=== PATIENT | male | born 1945 | race Caucasian/White ===

== ENCOUNTER 2016-12-31 08:39 | Emergency (ER) | payer MEDICARE, BC ==
[2016-12-31 09:21] VITALS: BP 122/68
--- NOTE | 2016-12-31 09:49 | UC ---
Lower Extremity/Ankle HPI - HPI Summary HPI Summary: 71 yo male with left ankle pain and swelling x 5 days Has twisted ankle twice in those 5 days no hx prior ankle or foot injury - History of Current Complaint Chief Complaint: UCLowerExtremity Stated Complaint: LEFT ANKLE PAIN Time Seen by Provider: 12/31/16 09:34 Hx Obtained From: Patient Onset/Duration: Sudden Onset, Lasting Days Severity Initially: Mild Severity Currently: Moderate Pain Intensity: 4 Pain Scale Used: 0-10 Numeric Aggravating Factor(s): Standing, Ambulation Alleviating Factor(s): Rest, Elevation Able to Bear Weight: Yes - Allergies/Home Medications Allergies/Adverse Reactions: Allergies Allergy/AdvReac Type Severity Reaction Status Date / Time Penicillins Allergy Severe Hives Verified 12/31/16 09:07 Home Medications: Home Medications Aspirin Low Dose CHEW TAB* [Aspirin Low Dose TAB*] 81 mg PO DAILY 12/31/16 [ History Confirmed 12/31/16] Dabigatran CAP(NF) [Pradaxa CAP(NF)] 150 mg PO BID 12/31/16 [History Confirmed 12/31/16] Lisinopril/HCTZ 20/12.5(NF) [Zestoretic 20/12.5(NF)] 1 tab PO BID 12/31/16 [ History Confirmed 12/31/16] Omeprazole CAP* [Prilosec CAP* 20 MG] 20 mg PO DAILY 12/31/16 [History Confirmed 12/31/16] Simvastatin [Zocor 5 MG-] 20 mg PO DAILY 12/31/16 [History Confirmed 12/31/16] amLODIPine TAB* [Norvasc 5 mg TAB*] 5 mg PO DAILY 12/31/16 [History Confirmed ] PMH/Surg Hx/FS Hx/Imm Hx Previously Healthy: Yes Endocrine History: Dyslipidemia Cardiovascular History: Cardiac Disease, Hypertension, Atrial Fibrillation Neurological History: CVA - Surgical History Surgical History: Yes Surgery Procedure, Year, and Place: OPEN HEART. APPENCECTOMY. HERNIA REPAIR - Family History Known Family History: Positive: Hypertension, Diabetes - Social History Alcohol Use: Rare Substance Use Type: None Smoking Status (MU): Former Smoker When Did the Patient Quit Smoking/Using Tobacco: 1998 Review of Systems Constitutional: Fatigue Skin: Bruising Eyes: Negative ENT: Negative Respiratory: Negative Cardiovascular: Negative Gastrointestinal: Negative Genitourinary: Negative Motor: Negative Neurovascular: Negative Musculoskeletal: Arthralgia Neurological: Negative Psychological: Negative All Other Systems Reviewed And Are Negative: Yes Physical Exam Triage Information Reviewed: Yes Appearance: Well-Appearing, No Pain Distress, Well-Nourished Vital Signs: Initial Vital Signs Temp 98.5 F 12/31/16 09:13 Pulse 68 12/31/16 09:13 Resp 18 12/31/16 09:13 BP 122/68 12/31/16 09:13 Pulse Ox 98 12/31/16 09:13 Vital Signs Reviewed: Yes Eyes: Positive: Conjunctiva Clear ENT: Negative: Hearing grossly normal, Nasal congestion, Nasal drainage, Trismus , Muffled/hoarse voice Neck: Positive: Supple, Nontender Respiratory: Positive: Lungs clear, Normal breath sounds, No respiratory distress Cardiovascular: Negative: RRR Musculoskeletal: Positive: Edema @ - left MM and LN Neurological: Positive: Alert Psychological Exam: Normal Skin Exam: Normal Diagnostics - Radiology No standard instances Xray Interpretation: Positive (See Comments) Radiology Interpretation Completed By: ED Physician - offical report pending at time of d/c, DJD and STS, no fx noted Lower Extremity Course/Dx - Differential Dx/Diagnosis Provider Diagnoses: left ankle sprain Discharge - Discharge Plan Condition: Stable Disposition: HOME Patient Education Materials: Ankle Sprain (ED) Referrals: Jesusita Quintero MD [Primary Care Provider] - 1 Week (if not better) Additional Instructions: rest elevate ice CAM boot when wt bearing tylenol if needed for pain I SUSPECT YOUR SWELLING AND BRUISING WILL WORSEN OVER THE NEXT FEW DAYS See your MD in about a week if unable to bear wt pain free Images Feet (Multiple View): 1 - tender/swollen/sl ecchymosis 2 - tender/swollen
--- NOTE | 2016-12-31 10:03 | RAD ---
INDICATION: Ankle injury COMPARISON: None TECHNIQUE: AP, lateral, and oblique views were obtained. FINDINGS: There is osteopenia. There is mild ossific change about the tibiotalar joint. There are heel spurs. There is diffuse soft tissue swelling both medial and laterally. There is also degenerative change of the midfoot with hypertrophic change with spurring. IMPRESSION: DEGENERATIVE CHANGES. NO ACUTE BONY CHANGE. DIFFUSE SOFT TISSUE SWELLING.
== END 2016-12-31 10:10 | disposition home or self-care (01) ==
LOC: UCCORT 08:39
DX: S93.402A Sprain of unspecified ligament of left ankle, initial encounter (principal); X50.1XXA Overexertion from prolonged static or awkward postures, initial encounter; Y93.9 Activity, unspecified; Y92.9 Unspecified place or not applicable; I48.91 Unspecified atrial fibrillation; Y99.9 Unspecified external cause status; M85.872 Other specified disorders of bone density and structure, left ankle and foot; R22.9 Localized swelling, mass and lump, unspecified; M19.072 Primary osteoarthritis, left ankle and foot; Z86.73 Personal history of transient ischemic attack (TIA), and cerebral infarction without residual deficits; E78.5 Hyperlipidemia, unspecified; I51.9 Heart disease, unspecified; Z72.0 Tobacco use
CPT/HCPCS: 99202; G0463

== ENCOUNTER 2017-04-09 08:53 | Emergency (ER) | payer MEDICARE, BC ==
[2017-04-09 09:13] VITALS: BP 145/67
--- OUTSIDE RECORDS SUMMARY | 2017-04-09 09:32 | XMS REPORT | Clinical Summary ---
:1945 Author Organization [facility] Address [address] [place] [address] Phone Allergies, Adverse Reactions, Alerts Allergy Name Reaction Description Start Date Severity Status Provider PENICILLIN Critical Active Milagros Winchester RN Conditions or Problems Problem Name Problem Onset Status Entry Provider Comment Standard Annotate Code Date Date Description Hypertension, 401.9 Active SHANTHI Unspecified essential, 06/29 07/28 DANIS essential controlled SONYA SANCHES hypertension NASAL POLYP 471.0 Active Milagros Polyp of nasal 06/29 06/29 Annabella RN cavity FATIGUE 780.79 Active Leti Other malaise 06/12 06/12 NauseefLPN and fatigue Hyperlipidemia 272.2 Active SHANTHI Mixed mixed 09/24 07/28 DANIS hyperlipidemia SONYA SANCHES ATRIAL 427.31 Active CLAYTON F Atrial FIBRILLATION 12/18 12/18 SALVATORE SANCHES fibrillation CEREBROVASCULA 434.91 Active CLAYTON Alfaro 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, unspecified, with cerebral infarction OBESITY 278.00 Active CLAYTON F Obesity, 01/23 01/23 SALVATORE SANCHES unspecified VENTRICULAR 745.4 Active CLAYTON F Ventricular SEPTAL DEFECT 0 SALVATORE SANCHES septal defect Home oxygen V46.2 Active SHANTHI Other nocturnal therapy 01/18 01/18 DANIS dependence on sat--88, 2 SONYA SANCHES machines, LPM supplemental nightime oxygen use only Carbuncle of 680.6 Active SHANTHI Carbuncle and leg, left 06/06 06/06 DANIS furuncle of SONYA SANCHES leg, except foot Medication List Medication Instructions Start Stop Generic Name NDC Status Provider Patient Date Date Instruction ASPIRIN 81 1 by mouth ASPIRIN 160026254 Active Kristine MG ORAL every day 12/31 05 [place] TABLET BOBBIN SORTER CENTRUM 1 tab qd MULTIPLE 973017712 Active CLAYTON Alfaro SILVER ULTRA 06/13 VITAMINS-MIN 50 KARN PA MENS ORAL ERALS TABLET OMEPRAZOLE take 1 OMEPRAZOLE 679966902 Active SHANTHI 20 MG ORAL capsule by 05/11 01 DANIS CAPSULE mouth daily HASSAN DELAYED PA RELEASE PRADAXA 150 take DABIGATRAN 304972165 Active SHANTHI MG ORAL capsule by 06/07 ETEXILATE 54 DANIS CAPSULE mouth twice a MESYLATE HASSAN day PA AMLODIPINE one by mouth AMLODIPINE 430731011 Active SHANTHI BESYLATE 5 Every Day for 09/17 BESYLATE 22 DANIS MG ORAL BP HASSAN TABLET PA HOME OXYGEN HOME OXYGEN Active SHANTHI 2 LPM 01/18 2 LPM DANIS HASSAN PA LISINOPRIL-H take 2 LISINOPRIL-H 602348222 Active SHANTHI CTZ 20-12.5 tablets by 01/04 YDROCHLOROTH 01 DANIS MG TAB mouth once IAZIDE HASSAN daily PA SIMVASTATIN 1 By Mouth SIMVASTATIN 083311282 Active SHANTHI 20 MG TABLET take at 01/05 10 DANIS bedtime HASSAN PA DOXYCYCLINE 1 by mouth DOXYCYCLINE 627979378 Active SHANTHI HYCLATE 100 twice a day 06/06 04/16 HYCLATE 05 DANIS MG ORAL HASSAN CAPSULE PA Immunizations Vaccine Administration Date Value Standard Description influenza immunization given elsewhere influenza virus vaccine, (Flu Vax) has been unspecified formulation administered influenza immunization given influenza virus vaccine, (Flu Vax) has been unspecified formulation administered influenza immunization given influenza virus vaccine, (Flu Vax) has been unspecified formulation administered PEDIATRIC PNEUMOCOCCAL given elsewhere pneumococcal conjugate VACCINE ([id number]) #1 vaccine, 13 valent influenza immunization given influenza virus vaccine, (Flu Vax) has been unspecified formulation administered influenza immunization given influenza virus vaccine, (Flu Vax) has been unspecified formulation administered varicella shingles given elsewhere varicella virus vaccine vaccine dT (Diphtheria and given Td(adult) unspecified Tetanus) immunization for formulation children, #1 Vital Signs Date Name Value Unit Range Description blood pressure, diastolic 75 mm[Hg] BP kennedy blood pressure, systolic 138 mm[Hg] BP sys height E&M 69 [in_us] Bdy height pulse rate E&M 49 /min Heart rate respiratory rate E&M 16 /min Resp rate temperature E&M 97.6 [degF] Body temperature weight E&M 216 [lb_av] Weight Measured blood pressure, diastolic 64 mm[Hg] BP kennedy blood pressure, systolic 127 mm[Hg] BP sys height E&M 69 [in_us] Bdy height pulse rate E&M 55 /min Heart rate respiratory rate E&M 18 /min Resp rate temperature E&M 97.7 [degF] Body temperature weight E&M 212 [lb_av] Weight Measured blood pressure, diastolic 73 mm[Hg] BP kennedy blood pressure, systolic 136 mm[Hg] BP sys height E&M 69 [in_us] Bdy height pulse rate E&M 56 /min Heart rate respiratory rate E&M 18 /min Resp rate temperature E&M 98 [degF] Body temperature weight E&M 217 [lb_av] Weight Measured blood pressure, diastolic, second 71 mm[Hg] BP kennedy observation blood pressure, diastolic 71 mm[Hg] BP kennedy blood pressure, systolic, second 146 mm[Hg] BP sys observation blood pressure, systolic 146 mm[Hg] BP sys height E&M 69 [in_us] Bdy height pulse rate E&M 73 /min Heart rate respiratory rate E&M 12 /min Resp rate temperature E&M 97.3 [degF] Body temperature weight E&M 228 [lb_av] Weight Measured Diagnostic Results Date Name Value Unit Range Description Lab Report: BASIC METABOLIC PANEL - Chemistry blood glucose, random 93 mg/dL 74-106 urea nitrogen/creatinine ratio, 17.8 ratio serum sodium, serum 145 mmol/L 594-623 3527/03/17 potassium, serum 3.9 mmol/L 3.5-5.1 chloride, serum 109 mmol/L 98-107 carbon dioxide, venous blood 28 mmol/L 21-32 anion gap, serum 8 mEq/L 8-16 calcium, serum 8.5 mg/dL 8.5-10.1 blood glucose, random 92 mg/dL 74-106 urea nitrogen, blood 27 mg/dL 7-18 creatinine, serum 1.1 mg/dL 0.6-1.3 Estimated Glomerular Filtration >60 mL/min mL/min/1.73m2 > 60 Rate (calc) Glomerular Filtration rate >60 mL/min >60 Vincentian urea nitrogen/creatinine ratio, 24.5 ratio serum sodium, serum 144 mmol/L 544-593 6646/08/30 potassium, serum 4.2 mmol/L 3.5-5.1 chloride, serum 109 mmol/L 98-107 carbon dioxide, venous blood 31 mmol/L 21-32 anion gap, serum 4 mEq/L 8-16 calcium, serum 9.0 mg/dL 8.5-10.1 cholesterol, serum 110 mg/dL <200 triglyceride, serum, fasting 95 mg/dL <150 HDL cholesterol, serum 34 mg/dL >40 LDL cholesterol, serum 57 mg/dL < 100 alanine aminotransferase (SGPT), 23 U/L 12-78 serum urea nitrogen, blood 25 mg/dL 7-18 creatinine, serum 1.4 mg/dL 0.6-1.3 Estimated Glomerular Filtration 53 mL/min/1.73m2 >60 Rate (calc) Glomerular Filtration rate >60 mL/min >60 [facility] Office Visit: OV:Head injury f/u - Chemistry occult blood, stool (E&M) guaiac negative Office Visit: OV:Head injury f/u - Urinalysis nitrite, urine, semiquantitative negative urobilinogen, urine, semiquantitative (dipstick) negative blood in urine (hemoglobin) by dipstick negative ketones, urine, by test strip negative bilirubin, urine negative glucose, urine, semiquantitative negative leukocyte esterase, urine, by dipstick negative appearance, urine clear urine color yellow specific gravity, urine 1.010 pH, urine, semiquantitative 6.0 Encounters Code Encounter Date Provider Facility CPT-64751 Ofc Vst, Est Level III SHANTHI [facility] 11:39:27 EST PA CPT-19780 Ofc Vst, Est Level IV SHANTHI HASSAN [facility] 08:56:55 EDT PA CPT-81985 Ofc Vst, Est Level II SHANTHI [facility] 21:24:52 EDT PA CPT-22775 Ofc Vst, Est Level II SHANTHI [facility] 15:06:08 EDT PA CPT-58573 Ofc Vst, Est Level III SHANTHI [facility] 09:37:55 EDT PA CPT-46116 Ofc Vst, Est Level IV SHANTHI HASSAN [facility] 09:58:41 EDT PA CPT-39467 Ofc Vst, Est Level III SHANTHI HANSENLEY SONYA [facility] 12:15:58 EDT PA CPT-86537 Ofc Vst, Est Level III SHANTHI HASSAN [facility] 12:26:01 EDT PA CPT-48082 Ofc Vst, Est Level III SHANTHI HASSAN [facility] 09:08:35 EDT PA CPT-36081 Ofc Vst, Est Level III SHANTHI HASSAN [facility] 09:14:04 EDT PA CPT-36155 Ofc Vst, Est Level III SHANTHI HASSAN [facility] 08:42:26 EDT PA CPT-98808 Ofc Vst, Est Level III SHANTHI HASASN [facility] 09:44:50 EDT PA CPT-34993 Ofc Vst, Est Level III SHANTHI DANIS HASSAN [facility] 09:20:38 EDT PA CPT-25175 Ofc Vst, Est Level IV CLAYTON SANCHES [facility] 08:23:46 EDT CPT-45182 Ofc Vst, Est Level III CLAYTON SANCHES [facility] 23:19:34 EDT CPT-12073 Ofc Vst, Est Level IV CLAYTON SANCHES [facility] 10:37:11 EDT CPT-23181 Ofc Vst, Est Level IV CLAYTON SANCHES [facility] 21:52:49 EDT CPT-78937 Ofc Vst, Est Level III CLAYTON SANCHES [facility] 21:20:05 EDT CPT-26829 Ofc Vst, Est Level III CLAYTON SANCHES [facility] 20:53:48 EDT CPT-05362 Ofc Vst, Est Level III SHANTHI HASSAN [facility] 08:28:26 EDT PA CPT-47124 Ofc Vst, Est Level IV CLAYTON SANCHES [facility] 10:16:46 EDT CPT-12603 Ofc Vst, Est Level IV CLAYTON CHASE [facility] 11:14:31 EST Procedures Code Procedure Name Date Entry Date Standard Description CPT-54610 Urine Dip - In House 09:35:57 EDT CPT-74780 Influenza 3 yrs. & up 12:14:56 EDT CPT-96826 Admin one Imm 12:14:53 EDT CPT-74376 Admin one Imm 13:34:00 EDT CPT-32256 Influenza 3 yrs. & up 09:01:05 EDT CPT-44851 Influenza 3 yrs. & up 08:44:26 EDT CPT-49501 Admin one Imm 08:44:26 EDT CPT-14224 Urine Dip - In House 22:29:09 EST CPT-61899 Venipuncture 10:50:06 EST CPT-46708 Venipuncture 09:30:48 EST CPT-34169 Venipuncture 08:44:05 EDT CPT-46974 Venipuncture 20:53:48 EDT CPT-56272 Venipuncture 09:39:08 EDT
--- OUTSIDE RECORDS SUMMARY | 2017-04-09 09:32 | XMS REPORT | Clinical Summary ---
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, unspecified, with cerebral infarction OBESITY 278.00 Active CLAYTON F Obesity, 01/23 01/23 SALVATORE SANCHES unspecified VENTRICULAR 745.4 Active CLAYTON F Ventricular SEPTAL DEFECT 0 0 SALVATORE SANCHES septal defect Home oxygen V46.2 Active SHANTHI Other nocturnal therapy 01/18 01/18 DANIS dependence on sat--88, 2 SONYA SANCHES machines, LPM supplemental nightime oxygen use only Carbuncle of 680.6 Active SHANTHI Carbuncle and leg, left 06/06 06/06 DANIS furuncle of SONYA SANCHES leg, except foot Subcutaneous 782.2 Active SHANTHI Localized chronic mass of 06/06 06/06 DANIS superficial forearm, right HASSAN PA swelling, mass, or lump Medication List Medication Instructions Start Stop Generic Name NDC Status Provider Patient Date Date Instruction ASPIRIN 81 1 by mouth ASPIRIN 386041288 Active Kristine MG ORAL every day 12/31 05 Creeden TABLET BRICK UNLOADER TENDER CENTRUM 1 tab qd MULTIPLE 453761038 Active CLAYTON Alfaro SILVER ULTRA 06/13 VITAMINS-MIN 50 KARN PA MENS ORAL ERALS TABLET OMEPRAZOLE take OMEPRAZOLE 181345304 Active SHANTHI 20 MG ORAL capsule by 05/11 01 DANIS CAPSULE mouth daily HASSAN DELAYED PA RELEASE PRADAXA 150 take DABIGATRAN 785917641 Active SHANTHI MG ORAL capsule by 06/07 ETEXILATE 54 DANIS CAPSULE mouth twice a MESYLATE HASSAN day PA AMLODIPINE one by mouth AMLODIPINE 246872574 Active SHANTHI BESYLATE 5 Every Day for 09/17 BESYLATE 22 DANIS MG ORAL BP HASSAN TABLET PA HOME OXYGEN HOME OXYGEN Active SHANTHI 2 LPM 01/18 2 LPM DANIS HASSAN PA LISINOPRIL-H take 2 LISINOPRIL-H 142241854 Active SHANTHI CTZ 20-12.5 tablets by 01/04 YDROCHLOROTH 01 DANIS MG TAB mouth once IAZIDE HASSAN daily PA SIMVASTATIN 1 By Mouth SIMVASTATIN 326643588 Active SHANTHI 20 MG TABLET take at 01/05 10 DANIS bedtime HASSAN PA DOXYCYCLINE 1 by mouth 2016/ DOXYCYCLINE 518977068 Active SHANTHI HYCLATE 100 twice a day [...] PEDIATRIC PNEUMOCOCCAL given elsewhere pneumococcal conjugate VACCINE ([id number]) #1 vaccine, 13 valent influenza immunization given [...] blood glucose, random 93 mg/dL 74-106 urea nitrogen, blood 25 mg/dL 7-18 creatinine, serum 1.4 mg/dL 0.6-1.3 Estimated Glomerular Filtration 53 mL/min/1.73m2 >60 Rate (calc) Glomerular Filtration rate >60 mL/min >60 [place]i urea nitrogen/creatinine ratio, 17.8 ratio serum sodium, serum 145 mmol/L 856-224 4299/03/17 potassium, serum 3.9 mmol/L 3.5-5.1 chloride, serum 109 mmol/L 98-107 carbon dioxide, venous blood 28 mmol/L 21-32 anion gap, serum 8 mEq/L 8-16 calcium, serum 8.5 mg/dL 8.5-10.1 blood glucose, random 92 mg/dL 74-106 urea nitrogen, blood 27 mg/dL 7-18 creatinine, serum 1.1 mg/dL 0.6-1.3 Estimated Glomerular Filtration >60 mL/min mL/min/1.73m2 > 60 Rate (calc) Glomerular Filtration rate >60 mL/min >60 Yemeni urea nitrogen/creatinine ratio, 24.5 ratio serum sodium, serum 144 mmol/L 036-454 4409/08/30 potassium, serum 4.2 mmol/L 3.5-5.1 chloride, serum 109 mmol/L 98-107 carbon dioxide, venous blood 31 mmol/L 21-32 anion gap, serum 4 mEq/L 8-16 calcium, serum 9.0 mg/dL 8.5-10.1 cholesterol, serum 110 mg/dL <200 triglyceride, serum, fasting 95 mg/dL <150 HDL cholesterol, serum 34 mg/dL >40 LDL cholesterol, serum 57 mg/dL < 100 alanine aminotransferase (SGPT), 23 U/L 12-78 serum Office Visit: OV:Head injury f/u - Chemistry occult blood, stool (E&M) guaiac negative Office Visit: OV:Head injury f/u - Urinalysis pH, urine, semiquantitative 6.0 specific gravity, urine 1.010 urine color yellow appearance, urine clear leukocyte esterase, urine, by dipstick negative nitrite, urine, semiquantitative negative urobilinogen, urine, semiquantitative (dipstick) negative blood in urine (hemoglobin) by dipstick negative ketones, urine, by test strip negative bilirubin, urine negative glucose, urine, semiquantitative negative Encounters Code Encounter Date Provider Facility CPT-14010 Ofc Vst, Est Level III SHANTHI [facility] 11:39:27 EST PA CPT-85454 Ofc Vst, Est Level IV SHANTHI [facility] 08:56:55 EDT PA CPT-61589 Ofc Vst, Est Level II SHANTHI [facility] 21:24:52 EDT PA CPT-71857 Ofc Vst, Est Level II SHANTHI [facility] 15:06:08 EDT PA CPT-78942 Ofc Vst, Est Level III SHANTHI [facility] 09:37:55 EDT PA CPT-85709 Ofc Vst, Est Level IV SHANTHI HASSAN [facility] 09:58:41 EDT PA CPT-77765 Ofc Vst, Est Level III SHANTHI HASSAN [facility] 12:15:58 EDT PA CPT-15466 Ofc Vst, Est Level III SHANTHI HASSAN [facility] 12:26:01 EDT PA CPT-77662 Ofc Vst, Est Level III SHANTHI HASSAN [facility] 09:08:35 EDT PA CPT-91607 Ofc Vst, Est Level III SHANTHI HASSAN [facility] 09:14:04 EDT PA CPT-38806 Ofc Vst, Est Level III SHANTHI HASSAN [facility] 08:42:26 EDT PA CPT-76088 Ofc Vst, Est Level III SHANTHI DANIS HASSAN [facility] 09:44:50 EDT PA CPT-27316 Ofc Vst, Est Level III SHANTHI DANIS SALTERENS [facility] 09:20:38 EDT PA CPT-00612 Ofc Vst, Est Level IV CLAYTON SANCHES [facility] 08:23:46 EDT CPT-29991 Ofc Vst, Est Level III CLAYTON SANCHES [facility] 23:19:34 EDT CPT-87708 Ofc Vst, Est Level IV CLAYTON SANCHES [facility] 10:37:11 EDT CPT-62147 Ofc Vst, Est Level IV CLAYTON SANCHES [facility] 21:52:49 EDT CPT-37415 Ofc Vst, Est Level III CLAYTON SANCHES [facility] 21:20:05 EDT CPT-60029 Ofc Vst, Est Level III CLAYTON SANCHES [facility] 20:53:48 EDT CPT-98485 Ofc Vst, Est Level III SHANTHI HASSAN [facility] 08:28:26 EDT PA CPT-08298 Ofc Vst, Est Level IV CLAYTON SANCHES [facility] 10:16:46 EDT CPT-41149 Ofc Vst, Est Level IV CLAYTON SANCHES [facility] 11:14:31 EST Procedures Code Procedure Name Date Entry Date Standard Description CPT-90432 Urine Dip - In House 09:35:57 EDT CPT-70240 Influenza 3 yrs. & up 12:14:56 EDT CPT-54549 Admin one Imm 12:14:53 EDT CPT-39511 Admin one Imm 13:34:00 EDT CPT-38061 Influenza 3 yrs. & up 09:01:05 EDT CPT-78484 Influenza 3 yrs. & up 08:44:26 EDT CPT-33103 Admin one Imm 08:44:26 EDT CPT-84826 Urine Dip - In House 22:29:09 EST CPT-43208 Venipuncture 10:50:06 EST CPT-91966 Venipuncture 09:30:48 EST CPT-90015 Venipuncture 08:44:05 EDT CPT-07121 Venipuncture 20:53:48 EDT CPT-00408 Venipuncture 09:39:08 EDT
--- OUTSIDE RECORDS SUMMARY | 2017-04-09 09:33 | XMS REPORT | Clinical Summary ---
:1945 Author Organization [facility] Address [address] [place] [address] Phone Allergies, Adverse Reactions, Alerts Allergy Name [...] with cerebral infarction OBESITY 278.00 Active CLAYTON Alfaro Obesity, 01/23 01/23 SALVATORE SANCHES unspecified VENTRICULAR 745.4 Active CLAYTON Alfaro Ventricular SEPTAL DEFECT SALVATORE SANCHES septal defect Home oxygen V46.2 Active SHANTHI Other nocturnal therapy 01/18 01/18 DANIS dependence on sat--88, 2 SONYA SANCHES machines, LPM supplemental nightime oxygen use only Medication List Medication Instructions Start Stop Generic Name NDC Status Provider Patient Date Date Instruction ASPIRIN 81 1 by mouth ASPIRIN 199719052 Active Kristine MG ORAL every day 12/31 05 [place] TABLET YARDER BOSS CENTRUM 1 tab qd MULTIPLE 573642606 Active CLAYTON Alfaro SILVER ULTRA 2/05 VITAMINS-MIN 50 KARN PA MENS ORAL ERALS TABLET OMEPRAZOLE take 1 OMEPRAZOLE 598393949 Active SHANTHI 20 MG ORAL capsule by 05/11 01 DANIS CAPSULE mouth daily HASSAN DELAYED PA RELEASE PRADAXA 150 take 1 DABIGATRAN 244039436 Active SHANTHI MG ORAL capsule by 06/07 ETEXILATE 54 DANIS CAPSULE mouth twice a MESYLATE HASSAN day PA AMLODIPINE one by mouth AMLODIPINE 269831705 Active SHANTHI BESYLATE 5 Every Day for 09/17 BESYLATE 22 DANIS MG ORAL BP HASSAN TABLET PA HOME OXYGEN HOME OXYGEN Active SHANTHI 2 LPM 01/18 2 LPM DANIS HASSAN PA LISINOPRIL-H take 2 LISINOPRIL-H 138454575 Active SHANTHI CTZ 20-12.5 tablets by 01/04 YDROCHLOROTH 01 DANIS MG TAB mouth once IAZIDE HASSAN daily PA SIMVASTATIN 1 By Mouth SIMVASTATIN 222241859 Active SHANTHI 20 MG TABLET take at 01/05 10 DANIS bedtime SONYA SANCHES Immunizations Vaccine Administration Date Value Standard Description influenza immunization given elsewhere influenza virus vaccine, (Flu Vax) has been unspecified formulation administered influenza immunization given influenza virus vaccine, (Flu Vax) has been unspecified formulation administered influenza immunization given influenza virus vaccine, (Flu Vax) has been unspecified formulation administered PEDIATRIC PNEUMOCOCCAL given elsewhere pneumococcal conjugate VACCINE ([id number]) #1 vaccine, 13 valent influenza immunization given influenza virus vaccine, (Flu Vax) has been unspecified formulation administered influenza immunization given influenza virus vaccine, (Flu Vax) has been unspecified formulation administered varicella shingles given elsewhere varicella virus vaccine vaccine dT (Diphtheria and given Td(adult) unspecified Tetanus) immunization for formulation children, #1 Vital Signs Date Name Value Unit Range Description blood pressure, diastolic 64 mm[Hg] BP kennedy [...] (calc) Glomerular Filtration rate >60 mL/min >60 [place] urea nitrogen/creatinine ratio, 17.8 ratio serum sodium, serum 145 mmol/L 579-876 7297/03/17 potassium, serum 3.9 mmol/L 3.5-5.1 chloride, serum 109 mmol/L 98-107 carbon dioxide, venous blood 28 mmol/L 21-32 anion gap, serum 8 mEq/L 8-16 calcium, serum 8.5 mg/dL 8.5-10.1 blood glucose, random 92 mg/dL 74-106 urea nitrogen, blood 27 mg/dL 7-18 creatinine, serum 1.1 mg/dL 0.6-1.3 Estimated Glomerular Filtration >60 mL/min mL/min/1.73m2 > 60 Rate (calc) Glomerular Filtration rate >60 mL/min >60 [place] urea nitrogen/creatinine ratio, 24.5 ratio serum sodium, serum 144 mmol/L 294-365 6510/08/30 potassium, serum 4.2 mmol/L 3.5-5.1 chloride, serum [...] 6.0 Encounters Code Encounter Date Provider Facility CPT-15566 Ofc Vst, Est Level IV SHANTHI HASSAN [facility] 08:56:55 EDT PA CPT-23180 Ofc Vst, Est Level II SHANTHI HASSAN [facility] 21:24:52 EDT PA CPT-62915 Ofc Vst, Est Level II SHANTHI HASSAN [facility] 15:06:08 EDT PA CPT-17432 Ofc Vst, Est Level III SHANTHI HASSAN [facility] 09:37:55 EDT PA CPT-59073 Ofc Vst, Est Level IV SHANTHI HASSAN [facility] 09:58:41 EDT PA CPT-28022 Ofc Vst, Est Level III SHANTHI HASSAN [facility] 12:15:58 EDT PA CPT-67837 Ofc Vst, Est Level III SHANTHI HASSAN [facility] 12:26:01 EDT PA CPT-56547 Ofc Vst, Est Level III SHANTHI HASSAN [facility] 09:08:35 EDT PA CPT-45493 Ofc Vst, Est Level III SHANTHI HASSAN [facility] 09:14:04 EDT PA CPT-84613 Ofc Vst, Est Level III SHANTHI HASSAN [facility] 08:42:26 EDT PA CPT-60168 Ofc Vst, Est Level III SHANTHI HASSAN [facility] 09:44:50 EDT PA CPT-30147 Ofc Vst, Est Level III SHANTHI HASSAN [facility] 09:20:38 EDT PA CPT-73673 Ofc Vst, Est Level IV CLAYTON SANCHES [facility] 08:23:46 EDT CPT-73812 Ofc Vst, Est Level III CLAYTON SANCHES [facility] 23:19:34 EDT CPT-77274 Ofc Vst, Est Level IV CLAYTON SANCHES [facility] 10:37:11 EDT CPT-15025 Ofc Vst, Est Level IV CLAYTON SANCHES [facility] 21:52:49 EDT CPT-47185 Ofc Vst, Est Level III CLAYTON SANCHES [facility] 21:20:05 EDT CPT-06758 Ofc Vst, Est Level III CLAYTON SANCHES [facility] 20:53:48 EDT CPT-24871 Ofc Vst, Est Level III SHANTHI SALTERENS [facility] 08:28:26 EDT PA CPT-24781 Ofc Vst, Est Level IV CLAYTON SANCHES [facility] 10:16:46 EDT CPT-74884 Ofc Vst, Est Level IV CLAYTON SANCHES [facility] 11:14:31 EST Procedures Code Procedure Name Date Entry Date Standard Description CPT-03616 Urine Dip - In House 09:35:57 EDT CPT-97776 Influenza 3 yrs. & up 12:14:56 EDT CPT-11610 Admin one [facility] 12:14:53 EDT CPT-85504 Admin one [facility] 13:34:00 EDT CPT-38094 Influenza 3 yrs. & up 09:01:05 EDT CPT-06629 Influenza 3 yrs. & up 08:44:26 EDT CPT-21618 Admin one [facility] 08:44:26 EDT CPT-32678 Urine Dip - In House 22:29:09 EST CPT-36160 Venipuncture 10:50:06 EST CPT-61124 Venipuncture 09:30:48 EST CPT-91494 Venipuncture 08:44:05 EDT CPT-00549 Venipuncture 20:53:48 EDT CPT-87949 Venipuncture 09:39:08 EDT
--- NOTE | 2017-04-09 10:26 | UC ---
Skin Complaint HPI - HPI Summary HPI Summary: believes he got a pw to LEft lower leg about 2 weeks ago----seen pcp rx doxycyclene for redness and tenderness with swelling on outer leg. Today patient has increase calf tenderness, erythema, and swelling no fluctuate mass - History of Current Complaint Chief Complaint: UCSkin Time Seen by Provider: 04/09/17 10:15 Stated Complaint: SKIN COMPLAINT Hx Obtained From: Patient Onset/Duration: Gradual Onset, Lasting Weeks - 2, Still Present, Worse Since - past 3 days Skin Exposure Onset/Duration: Weeks Ago - 2 Timing: Constant Onset Severity: Mild Current Severity: Moderate Pain Intensity: 6 Pain Scale Used: 0-10 Numeric Location: Discrete - laft lateral calf Character: Swelling, Pain, Redness Aggravating Factor(s): Nothing Alleviating Factor(s): Other - heat and elevation Associated Signs & Symptoms: Positive: Negative Related History: Trauma - Allergy/Home Medications Allergies/Adverse Reactions: Allergies Allergy/AdvReac Type Severity Reaction Status Date / Time Penicillins Allergy Severe Hives Verified 04/09/17 09:05 Home Medications: Home Medications DOXYcycline CAP(*) [DOXYcycline 100MG CAP(*)] 100 mg PO BID 04/09/17 [History Confirmed 04/09/17] Review of Systems Constitutional: Negative Skin: Negative, Other - erythema left lateral leg Eyes: Negative ENT: Negative Respiratory: Negative Cardiovascular: Negative Gastrointestinal: Negative Genitourinary: Negative Motor: Negative Neurovascular: Negative Musculoskeletal: Negative, Edema - L>R, Myalgia - left calf Neurological: Negative Psychological: Negative Is Patient Immunocompromised?: No All Other Systems Reviewed And Are Negative: Yes PMH/Surg Hx/FS Hx/Imm Hx Previously Healthy: No Cardiovascular History: Cardiac Disease, Atrial Fibrillation Neurological History: CVA - Surgical History Surgical History: Yes Surgery Procedure, Year, and Place: OPEN HEART. APPENCECTOMY. HERNIA REPAIR - Family History Known Family History: Positive: Hypertension, Diabetes - Social History Occupation: Retired Lives: With Family Alcohol Use: Rare Substance Use Type: None Smoking Status (MU): Former Smoker When Did the Patient Quit Smoking/Using Tobacco: 1998 Physical Exam Triage Information Reviewed: Yes Appearance: Well-Appearing, No Pain Distress, Well-Nourished Vital Signs: Initial Vital Signs Temp 98.3 F 04/09/17 09:07 Pulse 67 04/09/17 09:07 Resp 18 12/02/17 09:07 BP 145/67 04/09/17 09:07 Pulse Ox 99 04/09/17 09:07 Vital Signs Reviewed: Yes Eye Exam: Normal Eyes: Positive: Conjunctiva Clear ENT Exam: Normal ENT: Positive: Normal ENT inspection, Hearing grossly normal. Negative: Trismus , Muffled voice, Hoarse voice Dental Exam: Normal Neck exam: Normal Neck: Positive: Supple, Nontender Respiratory Exam: Normal Respiratory: Positive: Chest non-tender, No respiratory distress, No accessory muscle use Cardiovascular Exam: Normal Cardiovascular: Positive: RRR, Pulses Normal, Brisk Capillary Refill Musculoskeletal Exam: Normal Musculoskeletal: Positive: Strength Intact, ROM Intact, Edema @ - left lower leg Neurological Exam: Normal Neurological: Positive: Alert, Muscle Tone Normal Psychological Exam: Normal Skin Exam: Other Skin: Positive: Other - scabbed area left lateral leg with 7 cm diameter erythema Course/Dx - Course Course Of Treatment: To [facility] by Private Car for further evaluation - Diagnoses Provider Diagnoses: LLE Swelling Discharge - Discharge Plan Condition: Stable Disposition: OTHER Discharge Disposition Comment: to [facility] by Private Car Patient Education Materials: Deep Venous Thrombosis (ED), Leg Edema (ED) Referrals: Wolf Orozco PA [Primary Care Provider] - 2 Days Additional Instructions: We are discharging you from the urgent care to follow up in the emergency department for further care and treatment on your lower leg
== END 2017-04-09 10:48 ==
LOC: UCCORT 08:53
DX: R60.0 Localized edema (principal); M79.662 Pain in left lower leg; I48.91 Unspecified atrial fibrillation; Z86.73 Personal history of transient ischemic attack (TIA), and cerebral infarction without residual deficits; Z88.0 Allergy status to penicillin; Z87.891 Personal history of nicotine dependence
CPT/HCPCS: 99212; G0463